=== PATIENT | female | born 1960 | race Caucasian/White ===

== ENCOUNTER 2017-08-16 16:52 | Emergency (ER) | payer SELFPAY ==
[~2017-08-16] VITALS: Ht 167.6 cm; Wt 40.2 kg
[2017-08-16 17:27] VITALS: BP 105/81; PULSE 85; RESP 18; TEMP 98.7; O2SAT 94
--- NOTE | 2017-08-16 18:11 | PD ---
HPI Chief Complaint: Respiratory Symptoms Time Seen by Provider: 18:00 Travel History International Travel<30 days: No Contact w/Intl Traveler<30days: No Traveled to known affect area: No History of Present Illness HPI Patient is a 56-year-old female with a smoking history (3.5packs per day), presents to emergency room with complaints of not feeling well. Patient reports that her initial symptoms began with a runny nose, postnasal drip with sinus congestion. She reports that her symptoms have progressed to having a sore throat, reports that she now has increased active cough with increased congestion with thick mucus reduction. Patient reports that she has been having subjective fevers and chills, denies any sick contacts. Denies any chest pain, denies any abdominal pain. NO recent travels/trips. Reports that she experienced the same symptoms last year and was diagnosed with bronchitis. [facility] Past Medical History Medical History: Denies Significant Hx Influenza Vaccination: No ?: Not Past Surgical History Tonsillectomy: Yes Social History Alcohol Use: No Tobacco Use: Yes (3.5 PPD) Substance Use: No Allergies-Medications (Allergen,Severity, Reaction): Coded Allergies: codeine (Verified Allergy, Unknown, RASH, 08/16/17) Reported Meds & Prescriptions Reported Meds & Active Scripts Active Prednisone 20 Mg Tab 20 Mg PO BID 5 Days Tessalon Perles (Benzonatate) 100 Mg Cap 100 Mg PO TID PRN Proair Hfa 8.5 GM Inh (Albuterol Sulfate) 90 Mcg/Act Aer 2 Puff INH Q4-6H PRN 108 mcg/actuation Azithromycin 500 Mg Tab 500 Mg PO DAILY Review of Systems General / Constitutional: Positive: Fever (subjective fevers), Chills Eyes: No: Visual changes HENT: Positive: Sore Throat, Rhinitis, Rhinorrhea, No: Headaches, Neck Pain Cardiovascular: No: Chest Pain or Discomfort, Palpitations, Irregular Rhythm Respiratory: Positive: Cough, Shortness of Breath Gastrointestinal: No: Nausea, Vomiting, Diarrhea, Abdominal Pain Genitourinary: No: Dysuria Musculoskeletal: No: Pain Skin: No Rash Neurologic: No: Weakness Psychiatric: No: Depression Endocrine: No: Polydipsia Hematologic/Lymphatic: No: Easy Bruising Physical Exam Narrative GENERAL: Mild distress SKIN: Focused skin assessment warm/dry. HEAD: Atraumatic. Normocephalic. EYES: Pupils equal and round. No scleral icterus. No injection or drainage. ENT: No nasal bleeding or discharge. Mucous membranes pink and moist. NECK: Trachea midline. No JVD. CARDIOVASCULAR: Regular rate and rhythm. No murmur appreciated. RESPIRATORY: No accessory muscle use. Tight breath sounds. Breath sounds equal bilaterally. GASTROINTESTINAL: Abdomen soft, non-tender, nondistended. Hepatic and splenic margins not palpable. MUSCULOSKELETAL: No obvious deformities. No clubbing. No cyanosis. No edema. NEUROLOGICAL: Awake and alert. No obvious cranial nerve deficits. Motor grossly within normal limits. Normal speech. PSYCHIATRIC: Appropriate mood and affect; insight and judgment normal. Data Data Last Documented VS Vital Signs Date Time Temp Pulse Resp B/P (MAP) Pulse Ox O2 Delivery O2 Flow Rate FiO2 08/16/17 18:16 96 08/16/17 17:27 98.7 85 18 105/81 (89) Orders Orders Complete Blood Count With Diff (08/16/17 18:05) Basic Metabolic Panel (Bmp) (08/16/17 18:05) Influenzae A/B Antigen (08/16/17 18:05) Iv Access Insert/Monitor (08/16/17 18:05) Ecg Monitoring (08/16/17 18:05) Oximetry (08/16/17 18:05) Chest, Pa & Lat (08/16/17 18:05) Sodium Chloride 0.9% Flush (Ns Flush) (08/16/17 18:15) Albuterol-Ipratropium Neb (Duoneb Neb) (08/16/17 18:15) Potassium Chloride (Kcl) (08/16/17 18:45) Azithromycin (Zithromax) (08/16/17 19:30) Lidocaine 1% Inj (50 Ml) (Xylocaine 1% I (08/16/17 19:30) Ceftriaxone Inj (Rocephin Inj) (08/16/17 19:30) Ed Discharge Order (08/16/17 19:35) Labs Laboratory Tests Test 08/16/17 18:15 White Blood Count 8.4 TH/MM3 Red Blood Count 4.64 MIL/MM3 Hemoglobin 13.5 GM/DL Hematocrit 40.6 % Mean Corpuscular Volume 87.4 FL Mean Corpuscular Hemoglobin 29.0 PG Mean Corpuscular Hemoglobin Concent 33.2 % Red Cell Distribution Width 14.7 % Platelet Count 146 TH/MM3 Mean Platelet Volume 8.1 FL Neutrophils (%) (Auto) 79.6 % Lymphocytes (%) (Auto) 11.9 % Monocytes (%) (Auto) 8.0 % Eosinophils (%) (Auto) 0.2 % Basophils (%) (Auto) 0.3 % Neutrophils # (Auto) 6.7 TH/MM3 Lymphocytes # (Auto) 1.0 TH/MM3 Monocytes # (Auto) 0.7 TH/MM3 Eosinophils # (Auto) 0.0 TH/MM3 Basophils # (Auto) 0.0 TH/MM3 CBC Comment DIFF FINAL Differential Comment Blood Urea Nitrogen 19 MG/DL Creatinine 0.69 MG/DL Random Glucose 106 MG/DL Calcium Level 9.3 MG/DL Sodium Level 130 MEQ/L Potassium Level 3.3 MEQ/L Chloride Level 97 MEQ/L Carbon Dioxide Level 24.4 MEQ/L Anion Gap 9 MEQ/L Estimat Glomerular Filtration Rate 89 ML/MIN MDM Medical Decision Making Medical Screen Exam Complete: Yes Emergency Medical Condition: Yes Medical Record Reviewed: Yes Interpretation(s) Vital Signs Date Time Temp Pulse Resp B/P (MAP) Pulse Ox O2 Delivery O2 Flow Rate FiO2 08/16/17 17:27 98.7 85 18 105/81 (89) 94 Differential Diagnosis Pneumonia, bronchitis, COPD exacerbation, influenza Narrative Course During the course of the patients emergency department visit, the patients history, examination, and differential diagnosis were reviewed with the patient. The patient was placed on a quality assurance monitor chassis with oximetry and frequent blood pressure monitoring. The patient had 20-gauge IV access obtained and blood work sent for analysis. The patient was initially provided DuoNeb's. Patient currently refusing IV steroids at this time, reports that she does not like the way the steroids make her feel. I did encourage her to stop smoking cigarettes which patient reports she will try to stop smoking. The patients laboratory studies were reviewed and remarkable for: CBC & BMP Diagram 08/16/17 18:15 Calcium Level 9.3 Microbiology Date/Time Source Procedure Growth Status 08/16/17 18:15 Nasal Aspirate Influenza Types A,B Antigen ([facility]) - Final NEGATIVE FOR FLU A AND B ANTIGEN.... Complete Radiology studies were reviewed and remarkable for: CBC & BMP Diagram 08/16/17 18:15 Calcium Level 9.3 Patient refusing nebulizer treatments at this time. patient with most likely bronchitis. Plan to treat with antibiotics and have her follow up with her pcp. She will return to ER as needed. Last Impressions Chest X-Ray 08/16/171804 Signed Impressions: Service Date/Time: Wednesday, August 16, 2017 18:13 - CONCLUSION: Hyperinflation which can be seen with COPD. Right middle lobe and right basilar infiltrate. Recommend medical treatment and followup to resolution. Rafiq Song MD X-ray of the chest shows right middle and right basilar infiltrate, patient offered admission to the hospital for treatment of multilobar pneumonia, she refuses admission at this time. Patient reports that she will return if she feels worse but does not wish to be admitted to the hospital. Signs and symptoms of when to return to the emergency room was reviewed patient in detail. Plan to give her a dose of Rocephin as well as azithromycin prior to being discharged from the hospital. patient refusing further medications at this time. Diagnosis Primary Impression: Bronchitis Additional Impressions: Smoking addiction Pneumonia Qualified Codes: J18.9 - Pneumonia, unspecified organism Hyponatremia Hypokalemia Patient Instructions: General Instructions Additional Instructions: Please provide patient with a copy of their lab work and studies at discharge* * Please follow up with your primary care doctor in 2-3 days Return to the ER if symptoms worsen or progress Return to the ER as needed Please take all medications as prescribed Please stop smoking Please have your x-ray repeated in 1 week Med/Other Pt SpecificInfo: Prescription(s) given Scripts Prednisone (Prednisone) 20 Mg Tab 20 MG PO BID for 5 Days, #10 TAB 0 Refills Prov: Sue Leggett DO 08/16/17 Benzonatate (Tessalon Perles) 100 Mg Cap 100 MG PO TID Y for COUGH, #30 CAP 0 Refills Prov: Sue Leggett DO 08/16/17 Albuterol 8.5 GM Inh (Proair Hfa 8.5 GM Inh) 90 Mcg/Act Aer 2 PUFF INH Q4-6H Y for SHORTNESS OF BREATH, #1 INHALER 0 Refills 108 mcg/actuation Prov: Sue Leggett DO 08/16/17 Azithromycin (Azithromycin) 500 Mg Tab 500 MG PO DAILY for Infection, #5 TAB 0 Refills Prov: Sue Leggett DO 08/16/17 Disposition: 01 DISCHARGE HOME Condition: Stable Sue Leggett DO Aug 16, 2017 18:11
[2017-08-16] MEDS: RESP: ALBUTEROL 2.5 MG/IPRATROPIUM 0.5 MG NEB (SCH) INH ×3 (18:15→18:45)
[2017-08-16] MEDS ORDERED: SODIUM CHLORIDE 0.9% FLUSH 10 ML FLUSH IVF PRN (18:15)
[2017-08-16 18:16] VITALS: O2SAT 96
[2017-08-16 18:30] LABS: AUTOMATED NEUTROPHIL # 6.7 TH/MM3 (1.8-7.7); BASOPHIL % 0.3 % (0.0-2.0); EOSINOPHIL % 0.2 % (0.0-4.0); HEMATOCRIT 40.6 % (35.0-46.0); LYMPH % 11.9 % (9.0-44.0); MEAN CELL VOLUME 87.4 FL (80.0-100.0); MEAN CORPUSCULAR HGB CONC 33.2 % (32.0-36.0); NEUT % 79.6 % (16.0-70.0); PLATELET COUNT 146 TH/MM3 (150-450); RED BLOOD COUNT 4.64 MIL/MM3 (4.00-5.30); RED CELL DISTRIBUTION WIDTH 14.7 % (11.6-17.2); WHITE BLOOD COUNT 8.4 TH/MM3 (4.0-11.0)
[2017-08-16 18:31] LABS: POTASSIUM 3.3 MEQ/L (3.5-5.1)
[2017-08-16 18:34] LABS: BICARBONATE 24.4 MEQ/L (21.0-32.0)
[2017-08-16 18:36] LABS: HEMO FLAGS DIFF FINAL
[2017-08-16] MEDS ORDERED: ALBUAER3 INH (18:45)
[2017-08-16] MEDS ORDERED: AZIT500T2 PO (18:45)
[2017-08-16] MEDS ORDERED: BENZ100 PO (18:45)
[2017-08-16] MEDS ORDERED: PRED20 PO (18:45)
[2017-08-16] MEDS ORDERED: POTASSIUM CHLORIDE 10 MEQ CONTROLLED RELEASE TAB PO ONE (18:45)
--- NOTE | 2017-08-16 19:11 | RADRPT ---
EXAM DATE/TIME: 08/16/2017 18:13 [facility] COMPARISON: No previous studies available for comparison. INDICATIONS : Cough and cold for several weeks. Dizziness and weakness for 3 days. MEDICAL HISTORY : None. SURGICAL HISTORY : None. ENCOUNTER: Initial ACUITY: 3 weeks PAIN SCORE: 3/10 LOCATION: Bilateral chest FINDINGS: PA and lateral views of the chest demonstrates hyperinflation which can be seen with CO PD. Right basilar and right middle lobe density.. Heart is normal in size. The mediastinal contours are unremarkable. Osseous structures are intact. CONCLUSION: Hyperinflation which can be seen with COPD. Right middle lobe and right basilar infiltrate. Recommend medical treatment and followup to resolution. Rafiq Song MD on August 16, 2017 at 19:09 Board Certified Radiologist. This report was verified electronically.
[2017-08-16] MEDS ORDERED: AZITHROMYCIN 250 MG TAB PO ONE (19:30)
[2017-08-16] MEDS ORDERED: LIDOCAINE HCL 1% 50 ML VIAL IM ONE (19:30)
== END 2017-08-16 20:24 | disposition home or self-care (01) ==
LOC: PHEFT 16:52
DX: J40 Bronchitis, not specified as acute or chronic (principal); J18.9 Pneumonia, unspecified organism; E87.1 Hypo-osmolality and hyponatremia; E87.6 Hypokalemia; F17.210 Nicotine dependence, cigarettes, uncomplicated; Z88.5 Allergy status to narcotic agent
CPT/HCPCS: 71020; 80048; 85025; 87804; 96372; 99284; J0696

== ENCOUNTER 2017-10-17 15:23 | Emergency (ER) | payer SELFPAY ==
[~2017-10-17] VITALS: Ht 167.6 cm; Wt 44.3 kg
[~2017-10-17 15:23] MED LIST: ALBUAER3 INH; AZIT500T2 PO; BENZ100 PO; PRED20 PO
[2017-10-17 15:38] VITALS: BP 157/92; PULSE 60; RESP 16; TEMP 97.5; O2SAT 98
[2017-10-17] MEDS: RESP: ALBUTEROL 2.5 MG/IPRATROPIUM 0.5 MG NEB (SCH) INH ×3 (17:15→17:30)
[2017-10-17] MEDS ORDERED: SODIUM CHLORIDE 0.9% FLUSH 10 ML FLUSH IVF PRN (17:15)
[2017-10-17] MEDS ORDERED: methylPREDNISolone SOD SUCC 125 MG/2 ML VIAL IV PUSH ONE (17:15)
--- NOTE | 2017-10-17 17:29 | RADRPT ---
EXAM DATE/TIME: 10/17/2017 17:13 [facility] COMPARISON: No previous studies available for comparison. INDICATIONS : Shortness of breath. MEDICAL HISTORY : None. SURGICAL HISTORY : None. ENCOUNTER: Initial ACUITY: 2 weeks PAIN SCORE: 0/10 LOCATION: Bilateral chest FINDINGS: A single view of the chest demonstrates the lungs to be symmetrically aerated without evidence of mas s, infiltrate or effusion. There is bullous change in the right lung apex. The cardiomediastinal cont ours are unremarkable. Osseous structures are intact. CONCLUSION: No acute disease. Teddy Burris MD on October 17, 2017 at 17:26 Board Certified Radiologist. This report was verified electronically.
--- NOTE | 2017-10-17 17:45 | PD ---
HPI . Shortness of breath Chief Complaint: Respiratory Symptoms Time Seen by Provider: 17:07 Travel History International Travel<30 days: No Contact w/Intl Traveler<30days: No Traveled to known affect area: No History of Present Illness HPI Patient presents with the chief complaint shortness of breath. Onset yesterday. She states that she's feels a crackling sensation in her lungs. She denies any fever and she denies any sputum production. States her breathing is exacerbated by certain smells and is improved when she gets "fresh air." Patient reports that she was seen here a few months ago with pneumonia. She states that she is not chronically on an MDI. She does admit to smoking although she states that she is smoking less. [facility] Past Surgical History Tonsillectomy: Yes Social History Alcohol Use: No Tobacco Use: Yes (3.5 PPD) Substance Use: No Allergies-Medications (Allergen,Severity, Reaction): Coded Allergies: codeine (Verified Allergy, Unknown, RASH, 10/17/17) Reported Meds & Prescriptions Reported Meds & Active Scripts Active Prednisone 20 Mg Tab 20 Mg PO BID 5 Days Tessalon Perles (Benzonatate) 100 Mg Cap 100 Mg PO TID PRN Proair Hfa 8.5 GM Inh (Albuterol Sulfate) 90 Mcg/Act Aer 2 Puff INH Q4-6H PRN 108 mcg/actuation Azithromycin 500 Mg Tab 500 Mg PO DAILY Review of Systems Except as stated in HPI: all other systems reviewed are Neg General / Constitutional: No: Fever, Chills Cardiovascular: Positive: Chest Pain or Discomfort Respiratory: Positive: Cough, Shortness of Breath Physical Exam Narrative GENERAL: Awake and alert and in no acute distress. Her clothing smells of cigarettes. Very thin woman. SKIN: warm/dry. Normal color and turgor. HEAD: Normocephalic. Atraumatic. EYES: Pupils equal and round. No scleral icterus. No injection or drainage. ENT: No nasal bleeding or discharge. Mucous membranes pink and moist. NECK: Trachea midline. Full range of motion without pain.. CARDIOVASCULAR: Regular rate and rhythm. Heart sounds normal. RESPIRATORY: No accessory muscle use. Diffuse inspiratory and expiratory wheezes. Breath sounds equal bilaterally. GASTROINTESTINAL: Abdomen soft. Nontender. Bowel sounds present. Nondistended. MUSCULOSKELETAL: No obvious deformities. NEUROLOGICAL: Awake and alert. No obvious cranial nerve deficits. Motor grossly within normal limits. Normal speech. PSYCHIATRIC: Appropriate mood and affect; insight and judgment normal. Data Data Last Documented VS Vital Signs Date Time Temp Pulse Resp B/P (MAP) Pulse Ox O2 Delivery O2 Flow Rate FiO2 10/17/17 15:38 97.5 60 16 157/92 (113) 98 Orders Orders Complete Blood Count With Diff (10/17/17 17:07) Basic Metabolic Panel (Bmp) (10/17/17 17:07) Iv Access Insert/Monitor (10/17/17 17:07) Electrocardiogram (10/17/17 17:07) Ecg Monitoring (10/17/17 17:07) Oximetry (10/17/17 17:07) Chest, Single Ap (10/17/17 17:07) Sodium Chloride 0.9% Flush (Ns Flush) (10/17/17 17:15) Methylprednisolone So Succ Inj (Solumedr (10/17/17 17:15) Albuterol-Ipratropium Neb (Duoneb Neb) (10/17/17 17:15) Labs Laboratory Tests Test 10/17/17 17:30 White Blood Count 5.3 TH/MM3 Red Blood Count 4.45 MIL/MM3 Hemoglobin 12.8 GM/DL Hematocrit 39.8 % Mean Corpuscular Volume 89.3 FL Mean Corpuscular Hemoglobin 28.7 PG Mean Corpuscular Hemoglobin Concent 32.2 % Red Cell Distribution Width 14.9 % Platelet Count 191 TH/MM3 Mean Platelet Volume 7.9 FL Neutrophils (%) (Auto) 36.6 % Lymphocytes (%) (Auto) 53.4 % Monocytes (%) (Auto) 6.8 % Eosinophils (%) (Auto) 1.5 % Basophils (%) (Auto) 1.7 % Neutrophils # (Auto) 1.9 TH/MM3 Lymphocytes # (Auto) 2.8 TH/MM3 Monocytes # (Auto) 0.4 TH/MM3 Eosinophils # (Auto) 0.1 TH/MM3 Basophils # (Auto) 0.1 TH/MM3 CBC Comment DIFF FINAL Differential Comment Blood Urea Nitrogen 14 MG/DL Creatinine 0.50 MG/DL Random Glucose 82 MG/DL Calcium Level 8.6 MG/DL Sodium Level 137 MEQ/L Potassium Level 3.9 MEQ/L Chloride Level 105 MEQ/L Carbon Dioxide Level 28.1 MEQ/L Anion Gap 4 MEQ/L Estimat Glomerular Filtration Rate 129 ML/MIN MDM Medical Decision Making Medical Screen Exam Complete: Yes Emergency Medical Condition: Yes Interpretation(s) EKG shows a sinus rhythm with no acute ischemic changes.. Differential Diagnosis Differential diagnosis of dyspnea includes but is not limited to congestive heart failure, pneumonia, wheezing, pneumothorax, pulmonary embolism Narrative Course This patient presents with shortness of breath. She is wheezing on exam. I have ordered Solu-Medrol and stacked DuoNeb. She has refused both. Last Impressions Chest X-Ray 10/17/17 1707 Signed Impressions: Service Date/Time: Tuesday, October 17, 2017 17:13 - CONCLUSION: No acute disease. Teddy Burris MD The chest x-ray was independently viewed by me. CBC & BMP Diagram 10/17/17 17:30 Calcium Level 8.6 The patient will be discharged on treatment for bronchitis including steroids and an MDI. Diagnosis Primary Impression: Bronchitis Patient Instructions: Acute Bronchitis (DC), General Instructions Med/Other Pt SpecificInfo: Prescription(s) given Scripts Albuterol 18 GM Inh (Ventolin Hfa 18 GM Inh) 90 Mcg/Act Aer 2 PUFF INH Q4H Y for SHORTNESS OF BREATH, #1 INHALER 0 Refills Prov: Shelly Lyle MD 10/17/17 Prednisone (Prednisone) 20 Mg Tab 40 MG PO DAILY for 5 Days, #10 TAB 0 Refills Prov: Shelly Lyle MD 10/17/17 Disposition: 01 DISCHARGE HOME Condition: Stable Shelly Lyle MD Oct 17, 2017 17:45
[2017-10-17 17:51] LABS: CALCIUM 8.6 MG/DL (8.5-10.1)
[2017-10-17 17:52] LABS: AUTOMATED NEUTROPHIL # 1.9 TH/MM3 (1.8-7.7); BASOPHIL # 0.1 TH/MM3 (0-0.2); BASOPHIL % 1.7 % (0.0-2.0); BICARBONATE 28.1 MEQ/L (21.0-32.0); EOSINOPHIL # 0.1 TH/MM3 (0-0.4); EOSINOPHIL % 1.5 % (0.0-4.0); HEMATOCRIT 39.8 % (35.0-46.0); HEMOGLOBIN 12.8 GM/DL (11.6-15.3); LYMPH % 53.4 % (9.0-44.0); LYMPHOCYTE # 2.8 TH/MM3 (1.0-4.8); MEAN CELL VOLUME 89.3 FL (80.0-100.0); MEAN CORPUSCULAR HEMOGLOBIN 28.7 PG (27.0-34.0); MEAN CORPUSCULAR HGB CONC 32.2 % (32.0-36.0); MEAN PLATELET VOLUME 7.9 FL (7.0-11.0); MONO % 6.8 % (0.0-8.0); MONOCYTE # 0.4 TH/MM3 (0-0.9); NEUT % 36.6 % (16.0-70.0); PLATELET COUNT 191 TH/MM3 (150-450); RED BLOOD COUNT 4.45 MIL/MM3 (4.00-5.30); RED CELL DISTRIBUTION WIDTH 14.9 % (11.6-17.2); WHITE BLOOD COUNT 5.3 TH/MM3 (4.0-11.0)
[2017-10-17 17:55] LABS: CREATININE 0.5 MG/DL (0.50-1.00)
[2017-10-17] MEDS ORDERED: VENTAER INH (18:03)
[2017-10-17] MEDS ORDERED: PRED20 PO (18:03)
[2017-10-17 18:09] VITALS: RESP 17; O2SAT 95
[2017-10-17 18:52] VITALS: BP 169/69; PULSE 59; RESP 18; O2SAT 96
--- NOTE | 2017-10-19 00:53 | EKG ---
Date Performed: 10/17/2017 Time Performed: 17:32:35 PTAGE: 56 years EKG: SINUS BRADYCARDIA BORDERLINE ECG NO PREVIOUS TRACING DOCTOR: Anjum Boothe Interpretating Date/Time 10/19/2017 00:52:29
== END 2017-10-17 19:06 | disposition home or self-care (01) ==
LOC: PHED 15:23
DX: J40 Bronchitis, not specified as acute or chronic (principal); R00.1 Bradycardia, unspecified; F17.210 Nicotine dependence, cigarettes, uncomplicated
CPT/HCPCS: 71045; 80048; 85025; 93005